=== PATIENT | male | born 1965 ===

== ENCOUNTER 2017-12-04 13:01 | Emergency (ER) | payer SELFPAY ==
[2017-12-04 13:07] VITALS: BMI 26.4
[2017-12-04 14:49] LABS: BASO % 0.4 % (0.0-2.0); EOS % 0.1 % (0.0-4.0); HEMOGLOBIN 15.6 g/dL (12.0-18.0); LYMPH # 0.7 K/uL (1.0-4.3); LYMPH % 6.2 % (20.0-40.0); MEAN CELL VOLUME 80.5 fL (80.0-94.0); MEAN CORPUSCULAR HEMOGLOBIN 27.8 pg (27.0-31.0); MEAN CORPUSCULAR HGB CONC 34.5 g/dL (33.0-37.0); MEAN PLATELET VOLUME 8.9 fL (7.2-11.7); MONO # 0.3 K/uL (0.0-0.8); MONO % 2.5 % (0.0-10.0); NEUT # 9.8 K/uL (1.8-7.0); NEUT % 90.8 % (50.0-75.0); NRBC % 0.1 % (0.0-2.0); PLATELET COUNT 234 K/uL (130-400); RBC 5.61 Mil/uL (4.40-5.90); RED CELL DISTRIBUTION WIDTH 14.6 % (11.5-14.5); WHITE BLOOD COUNT 10.8 K/uL (4.8-10.8)
[2017-12-04 15:05] LABS: ALB/GLOB RATIO 1.3 (1.0-2.1); ALBUMIN 4.3 g/dL (3.5-5.0); ALT/SGPT 36 U/L (21-72); AST/SGOT 27 U/L (17-59); BLOOD UREA NITROGEN 15 mg/dL (9-20); CALCIUM 8.5 mg/dl (8.6-10.4); GFR AFRICAN-AMERICAN > 60; GFR NON-AFRICAN AMERICAN > 60
[2017-12-04 15:17] LABS: B-TYPE NATRIURETIC PEPTIDE 84.8 pg/mL (0-900)
[2017-12-04 15:37] LABS: LYMPHOCYTE 5 % (20-40); MONOCYTE 3 % (0-10); NEUTROPHIL 92 % (50-75); PLATELET ESTIMATE NORMAL (NORMAL); TOTAL CELLS COUNTED 100
[2017-12-04] MEDS ORDERED: Sodium Chloride 0.9% 1,000 ML IV ONE (15:40)
[2017-12-04] MEDS ORDERED: DiphenhydrAMINE 50 mg/ml Inj IVP STA (15:40)
--- NOTE | 2017-12-04 15:47 | RAD ---
HISTORY: Malaised COMPARISON: None available. TECHNIQUE: Chest, one view. FINDINGS: Examination limited by habitus and hypoinflation. LUNGS: No focal consolidation. Please note that chest x-ray has limited sensitivity for the detection of pulmonary masses. PLEURA: No significant pleural effusion identified. No definite pneumothorax . CARDIOVASCULAR: Heart size mildly enlarged, likely exaggerated by hypoinflation. OSSEOUS STRUCTURES: No acute osseous abnormality identified. VISUALIZED UPPER ABDOMEN: Unremarkable. OTHER FINDINGS: None. IMPRESSION: Hypoinflation.
[2017-12-04] MEDS ORDERED: Sodium Chloride 0.9% 1,000 ML ONE (15:51)
[2017-12-04] MEDS ORDERED: DiphenhydrAMINE 50 mg/ml Inj ONE (15:51)
--- NOTE | 2017-12-04 16:34 | PCM.ANES ---
Anesthesia Emergent Intubation - Diagnosis Working Diagnosis:: respiratory failure - Consult Reason for Consult:: intubation - Intubation Attempts Previous Number of Intubation Attempts:: 0 By:: pt intubated on the first try - Pre-Intubation Vital Signs Blood Pressure: 145/106 Heart Rate: 109 Respiratory Rate: 30 O2 Sat: 92 FIO2: 100 Oxygen Delivery Method: Non-Rebreather Level Of Consciousness: Alert, Appropriate Intubation Meds Given: Etomidate, Propofol, Succinylcholine - Airway Management PreOxygenation: 100 Inhalation: No Rapid Sequence: Yes Cricoid Pressure: Yes Possible Aspiration: No - Method of Intubation Intubation Method: Oral ETT ETT Size: 8.0 Lipline@: 22 cm Easy: Yes Atramatic: Yes - Intubation Devices Az Blade Size Used: 3 - Placement Confirmation Breath Sounds Present & Equal Bilaterally: Yes Gurgling Sounds Not Audible at Epigastrum: Yes Positive EtCO2: Yes Portable CXR: Yes Recommendations: Ventilator, Chest X Ray, ABG - Post-Intubation Vital Signs Blood Pressure: 141/115 Heart Rate: 111 Respiratory Rate: 12 O2 Sat: 100 FIO2: 100
--- NOTE | 2017-12-04 16:50 | CP.PCM.PN ---
Subjective - Date & Time of Evaluation Date of Evaluation: 12/04/17 Time of Evaluation: 16:20 - Subjective Subjective: Please note this is an addendum to note of Dr Ofelia Odonnell. Intubation note was entered erroneously under this patient's name. This patient was never intubated by me today, please disregard the intubation note. Dr Odonnell Objective - Vital Signs/Intake and Output Vital Signs (last 24 hours): Temp Pulse Resp BP Pulse Ox 97.8 F 109 H 30 H 145/106 H 92 L 12/04/17 15:46 12/04/17 16:38 12/04/17 16:38 12/04/17 16:38 12/04/17 16:38 - Labs Labs: 12/04/17 14:46 12/04/17 14:46
--- NOTE | 2017-12-04 18:05 | C.PDOC ---
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 Time Seen by Provider: 12/04/17 13:58 Chief Complaint (Nursing): Medical Clearance History Per: Patient, EMS Onset/Duration Of Symptoms: Hrs Current Symptoms Are (Timing): Better Severity: Moderate Additional History Per: Prior Records Past Medical History Reviewed: Historical Data, Nursing Documentation, Vital Signs Vital Signs: Last Vital Signs Temp 97.8 F 12/04/17 15:46 Pulse 109 H 12/04/17 16:38 Resp 30 H 12/04/17 16:38 BP 145/106 H 12/04/17 16:38 Pulse Ox 92 L 12/04/17 16:38 - Medical History PMH: HTN Family History: States: Unknown Family Hx - Social History Hx Alcohol Use: No Hx Substance Use: No - Immunization History Hx Tetanus Toxoid Vaccination: No Hx Influenza Vaccination: No Hx Pneumococcal Vaccination: No Review Of Systems Except As Marked, All Systems Reviewed And Found Negative. Constitutional: Positive for: Malaise. Negative for: Fever Cardiovascular: Positive for: Palpitations Respiratory: Negative for: Hemoptysis Gastrointestinal: Positive for: Nausea. Negative for: Vomiting, Abdominal Pain Musculoskeletal: Negative for: Neck Pain Skin: Negative for: Rash Neurological: Negative for: Weakness Psych: Positive for: Anxiety. Negative for: Suicidal ideation, Withdrawal Physical Exam - Physical Exam Appears: Non-toxic, No Acute Distress Skin: Normal Color, Warm, Dry, No Rash Head: Atraumatic, Normacephalic Eye(s): bilateral: Normal Inspection, PERRL, EOMI Neck: Normal ROM, Supple Cardiovascular: Rhythm Regular Respiratory: Normal Breath Sounds, No Accessory Muscle Use Gastrointestinal/Abdominal: Soft, No Tenderness Extremity: Normal ROM, No Pedal Edema, No Calf Tenderness Neurological/Psych: Oriented x3, Normal Motor, Normal Sensation ED Course And Treatment - Laboratory Results Result Diagrams: 12/04/17 14:46 12/04/17 14:46 Lab Interpretation: No Acute Changes ECG: Interpreted By Me, Viewed By Me ECG Rhythm: Sinus Rhythm, Nonspecific Changes ECG Interpretation: No Acute Changes Rate From EC O2 Sat by Pulse Oximetry: 98 (on RA) Pulse Ox Interpretation: Normal - Radiology CXR: Interpreted by Me, Viewed By Me CXR Interpretation: Yes: No Acute Disease Progress Note: Pt feels much better and wants to go home. Reassessment Condition: Improved Disposition Counseled Patient/Family Regarding: Studies Performed, Diagnosis, Need For Followup, Rx Given - Disposition Referrals: [facility] [Outside] Disposition: HOME/ ROUTINE Disposition Time: 18:06 Condition: IMPROVED Additional Instructions: Follow up in the clinic for further evaluation and treatment. Return to the ER if you develop worsening of symptoms or if you have any other concerns. Prescriptions: hydrOXYzine HCl [Atarax] 50 mg PO TID PRN #30 tab PRN Reason: Anxiety Instructions: Anxiety (ED) Forms: Gen Discharge Inst Khmer Print Language: NEPALESE - Clinical Impression Clinical Impression: Anxiety attack
[2017-12-04] MEDS ORDERED: Enalaprilat 2.5 MG/2 ML IV ONE (18:59)
[2017-12-04] MEDS ORDERED: Enalaprilat 2.5 MG/2 ML ONE (19:18)
[2017-12-04 20:40] VITALS: RESP 18
[2017-12-04 21:02] VITALS: BP 165/96; PULSE 75; TEMP 98.6; O2SAT 98
--- NOTE | 2017-12-05 15:00 | CARD ---
APPROVED REPORT EKG Measurement Heart [id number] <Conclusion> Normal sinus rhythm Voltage criteria for left ventricular hypertrophy Abnormal ECG
== END 2017-12-04 21:34 | disposition home or self-care (01) ==
LOC: C.ER 13:01
DX: F41.9 Anxiety disorder, unspecified (principal)
CPT/HCPCS: 71045; 80053; 83880; 84484; 85025; 93005; 96361; 96374; 96375; 99285; J1200; J2060; J7040